=== PATIENT | male | born 1980 | race Caucasian/White ===

== ENCOUNTER 2018-05-16 14:33 | Emergency (ER) | payer OTHER ==
[~2018-05-16] VITALS: Ht 170.2 cm; Wt 71.8 kg
[2018-05-16 14:42] VITALS: BP 116/75
--- NOTE | 2018-05-16 14:45 | NUR ---
PT AMBULATES BACK TO THE LOBBY
--- NOTE | 2018-05-16 16:54 | NUR ---
PT BIB SELF WITH C/O L ANTERIOR NECK PAIN WITH BULGING DEFORMITY SINCE YESTERDAY DENIES. PT REPORTS NON-RADIATING CONSTANT PAIN AT 9/10 THAT HE DESCRIBES "TIRED MUSCLES. PT STATES LUMP IS TENDER TO TOUCH AND PAIN INCREASES WITH TONGUE MOVEMENT AND SWALLOWING. PT DENIES SOB, AIRWAY PATENT, VOICE IS CLEAR. VSS. ER MD TO SEE PT. HX; DENIES RX; DENIES
--- NOTE | 2018-05-16 17:51 | NUR ---
PT RESTING IN BED. C/O PAIN AT 9/10 IN THROAT WITH SWALLOWING. AIRWAY PATENT, RR SYMMETRICAL, AND NON-LABORED, 02 SAT AT 100% ON ROOM AIR.
[2018-05-16] MEDS ORDERED: CLINDAMYCIN 600 MG/4 ML VIAL IM ONE (17:55)
[2018-05-16] MEDS ORDERED: DEXAMETHASONE 10 MG/ML VIAL IM ONE (17:55)
--- NOTE | 2018-05-16 19:20 | NUR ---
RECEIVED REPORT FROM DAY SHIFT RN. NO ACUTE DISTRESS NOTED. PT DENIES PAIN N/V.D. WILL CONTINUE TO OBSERVE.
[2018-05-16 19:34] VITALS: BP 120/75
--- NOTE | 2018-05-16 19:34 | NUR ---
Patient discharged with v/s stable. Written and verbal after care instructions given and explained. Patient alert, oriented and verbalized understanding of instructions. Ambulatory with steady gait. All questions addressed prior to discharge. ID band removed. Patient advised to follow up with PMD. Rx of PREDNISONE/ZOVIRAX given. Patient educated on indication of medication including possible reaction and side effects. Opportunity to ask questions provided and answered.
== END 2018-05-16 19:34 | disposition home or self-care (01) ==
LOC: MED 14:33
DX: B00.1 Herpesviral vesicular dermatitis (principal); I88.9 Nonspecific lymphadenitis, unspecified
CPT/HCPCS: 87804; 96372; 99283; J1100; J3490

== ENCOUNTER 2020-03-31 13:04 | Emergency (ER) | payer SELFPAY ==
[~2020-03-31] VITALS: Ht 170.2 cm; Wt 68.9 kg
--- NOTE | 2020-03-31 13:05 | NUR ---
PT AMBULATED TO BED 3, STEADY GAIT.
[2020-03-31 13:08] VITALS: BP 127/71
[2020-03-31] MEDS: IBUPROFEN 600 MG TAB PO ONE (14:40)
[2020-03-31] MEDS: LIDOCAINE MPF 1% 10 MG/ML VIAL INJ ONE (14:41)
--- NOTE | 2020-03-31 15:31 | NUR ---
APPLIED DRESSING TO FOREHEAD WITHOUT ANY ISSUES
[2020-03-31 15:38] VITALS: BP 127/71
--- NOTE | 2020-03-31 15:39 | NUR ---
Patient discharged with v/s stable. Written and verbal after care instructions given and explained. Patient alert, oriented and verbalized understanding of instructions. Ambulatory with steady gait. All questions addressed prior to discharge. ID band removed. Patient advised to follow up with PMD. Rx of BACITRACIN AND IBUPROFEN given. Patient educated on indication of medication including possible reaction and side effects. Opportunity to ask questions provided and answered.
== END 2020-03-31 15:39 | disposition home or self-care (01) ==
LOC: MED 13:04
DX: S01.81XA Laceration without foreign body of other part of head, initial encounter (principal); W22.8XXA Striking against or struck by other objects, initial encounter; Y93.89 Activity, other specified; Y92.89 Other specified places as the place of occurrence of the external cause; Y99.8 Other external cause status
CPT/HCPCS: 12013; 90471; 90715; 99283; J2001